=== PATIENT | female | born 1990 ===

== ENCOUNTER 2016-11-06 22:05 | Inpatient (IN) ==
--- NOTE | 2016-11-06 22:50 | Emergency Department Note ---
Leyla Yanes Brittany, am scribing for, and in the presence of, Lucio Johnson MD 22: 47. Alex Yanes Andrew, MD, personally performed the services described in this documentation, ascribed by Yolanda Mayer in my presence, and it is both accurate and complete 250 . Arrival - Arrival Chief Complaint: Abdominal / Flank Pain ED Nursing Triage Note: Pt arrives via ems for further eval of acute appendicitis and gallstones. Pt was seen and treated at [facility] and sent after CT findings. Pt states that pain started today around 1200. Pain was initially in upper right quad. Denies pain at time of triage. Mode of Arrival: Stretcher Limitations: No Limitations Source: Patient Time Seen by Provider: 11/06/16 22:32 - History of Present Illness HPI Narrative: This si a 26 y/o [place] female,who presents to the ED by EMS for further evaluation of acute appendicitis. She states at 1200 today she started to experience RUQ pain. She states she was seen originally at [facility] and then sent here for futher evaluation. She reports nausea and vomiting with the abdominal pain but denies a fever. She reports she was given "pain medication" while at [facility] and the pain has now resolved. Pt has no other complaints/pain in the ED at this time. Pt denies a PMHx. Pt has had a tonsilectomy. Pt denies a family medical hx. Pt denies a social Hx. Onset (ago): hour(s) (Started today at noon) Consistency: now resolved Severity: moderate Date of Last Menstrual Period: 2 weeks ago Allergies/Adverse Reactions: Allergies Allergy/AdvReac Type Severity Reaction Status Date / Time Amoxicillin Allergy Mild Unknown/Unable Verified 09/02/14 07:35 to obtain Home Medications: Home Medications Medication Instructions Recorded Confirmed Type No Known Home Medications [No 11/06/16 11/06/16 History Known Home Medications] Review of System - Review of System 12 point system: reviewed and no additional remarkable complaints except as stated - Review of System Constitutional: Absent: fever Gastrointestinal: Present: abdominal pain, nausea Medical,Surgical,& Family Hx - Medical History Musculoskeletal: No history of: Amputation Reproductive: History of: Abnormal Pap Smear (2011) No history of: Breast Cancer, Ectopic , Complication, Sexually Transmitted Disorders, Reproductive Problems Other: No history of: Anesthesia Reactions - Surgical History Thoracic Surgeries: Patient denies;: Organ Transplant HEENT Surgeries: Surgical HX of: Tonsilectomy & Adenoidectomy (6 y/o) Reproductive Surgeries: Patient denies;: Section, Dilation and Curettage, Gynecologic Surgery, Hysterectomy, Tubal Ligation - Family History Family History: Reports;: Family Diabetes (dad) Denies;: Family Anesthesia Reaction, Family Cancer, Family Heart Disease, Family Hypertension, Family Psychiatric Problems, Family Stroke - Social History Smoking Status: Never smoker Frequency of Alcohol Use: None Type of Drug Use: None Exam Vital Signs: Vital Signs Temperature 99.0 F 11/06/16 22:05 Pulse Rate 104 H 11/07/16 00:05 Respiratory Rate 20 11/07/16 00:05 Blood Pressure 98/80 11/07/16 00:05 O2 Sat by Pulse Oximetry 96 11/07/16 00:05 - General General appearance: alert, in no apparent distress - Head Head exam: Present: atraumatic, normocephalic, normal inspection - Eye Eye exam: Present: normal appearance, PERRL, EOMI. Absent: nystagmus, miosis, mydriasis - ENT ENT exam: Present: normal exam, normal oropharynx, mucous membranes moist, TM's normal bilaterally, normal external ear exam - Neck Neck exam: Present: normal inspection, full ROM, trachea midline. Absent: tenderness, meningismus, lymphadenopathy, thyromegaly - Chest Chest inspection: Present: normal inspection, symmetric chest wall rise. Absent : tenderness, rash, abscess - Respiratory Respiratory exam: Present: normal lung sounds bilaterally. Absent: rales, respiratory distress, rhonchi, stridor, wheezes - Cardiovascular Cardiovascular exam: Present: regular rate, normal rhythm, normal heart sounds. Absent: murmur, rubs, gallop, clicks, JVD - Abdominal Exam Abdominal exam: Present: soft, normal bowel sounds. Absent: distention, tenderness, guarding, rebound, rigidity - Rectal Exam Rectal exam: Present: deferred - Extremities Exam Extremities exam: Present: normal inspection, full ROM, normal capillary refill. Absent: tenderness, pedal edema, joint swelling, calf tenderness - Back Exam Back exam: Present: normal inspection, full ROM. Absent: tenderness, muscle spasm, rashes - Neurological Exam Neurological exam: Present: alert, oriented X3, CN II-XII intact. Absent: motor sensory deficit - Psychiatric Psychiatric exam: Present: normal affect, normal mood. Absent: depressed, agitated, anxious, flat affect, manic - Skin Skin exam: Present: warm, dry, intact, normal color. Absent: rash, cyanosis, diaphoresis, erythema, pallor, mottled Course Course Narrative: CT viewed by me and report reviewed with 12mm appendix with surrounding stranding consistent with appendicitis. Had Rocephin at the OSH. WBC 13. Discussed with Dr. Armijo and plan to admit for appendectomy. Cefoxitin given per Dr. Armijo's request. Results - Labs CBC & BMP: 11/06/16 22:49 11/06/16 22:49 Lab Results: I have reviewed the patients labs Disposition Clinical Impression: Acute appendicitis Case discussed with: patient Disposition: Still a Patient Condition: Stable
[2016-11-06 23:22] LABS: Basophils % 0.3 % (0.0-0.8); Hematocrit 39.8 VOL% (35.7-47.0); Hemoglobin 13.2 GM/DL (12.0-16.0); Immature Granulocytes % 0.4 %; Immature Granulocytes Absolute 0.06 #; Lymphocytes # 1.5 10*3/uL (1.4-4.0); Lymphocytes % 11.3 % (21.3-54.2); Mean Corpuscular HGB Conc 33.2 GM/DL (32-36); Mean Corpuscular Hemoglobin 28 PG (27-34); Mean Corpuscular Volume 84.7 FL (87-102); Mean Platelet Volume 10.9 FL (9.6-12.0); Monocytes # 0.4 10*3/uL (0.11-0.8); Monocytes % 2.9 % (1.7-12.7); Neutrophils # 11.4 10*3/uL (1.4-7.4); Neutrophils % 85.1 % (38.7-73.9); Platelet Count 334 T/CUMM (130-400); Red Cell Distribution Width 13.2 % (9.3-17.3); White Blood Count 13.4 T/CUMM (4-12)
[2016-11-06 23:35] LABS: INR 1.1; PT Patient Result 11.7 SECS; Partial Thromboplastin Time 25.7 SECS (0-40)
[2016-11-06 23:39] LABS: Albumin 3.4 G/DL (3.4-5.0); Bilirubin,Total 0.4 MG/DL (0.2-1.0); Calcium 9.1 MG/DL (8.5-10.1); Osmolality,Calculated 280.1 MOS/KG (273-304); Potassium 3.8 MMOL/L (3.5-5.1); Total Protein 8.1 G/DL (6.4-8.3)
[2016-11-07 00:01] LABS: Apearance,Urine CLEAR (Clear); Bilirubin,Urine Negative (Negative); Blood, Urine Small mg/dL (Negative); Glucose,Urine (UA) Negative (Negative); Ketones,Urine 80 mg/dL (Negative); Mucus,Urine Occasional /LPF (Occasional); Nitrite,Urine Negative (Negative); Protein,Urine Negative; RBC,Urine 2 /HPF (0-4); Squamous Epithelial Cell,Urine Occasional /HPF (0-10); Urine Color Yellow (Yellow); Urine Specific Gravity > 1.060 (1.001-1.035); Urine Urobilinogen < 2.0 EU/DL (0.2-1.0); WBC,Urine 1 /HPF (0-6)
[2016-11-07] MEDS ORDERED: cefOXitin 1,000 MG in SODIUM CHLORIDE 0.9% 100 ML IV STA (01:29)
[2016-11-07] MEDS ORDERED: ONDANSETRON 4 MG/2 ML VIAL IV PRN (02:38)
[2016-11-07] MEDS ORDERED: ACETAMINOPHEN 325 MG TABLET PO PRN (02:38)
[2016-11-07] MEDS: DEXTROSE 5% NACL 0.45% 1,000 ML IV SCH ×3 (03:59→23:57)
[2016-11-07] MEDS ORDERED: LIDOCAINE 1%/EPI INJ 20 ML VIAL ONE (06:21)
[2016-11-07] MEDS ORDERED: BUPIVACAINE MPF 0.25% /EPI 30 ML VIAL ONE (06:21)
--- NOTE | 2016-11-07 07:17 | General Surg History&Physical ---
Assessment and Plan (1) Abdominal pain Status: Acute Assessment and plan: This patient appears to have appendicitis and symptomatic cholelithiasis or even acute cholecystitis. She feels better after treatment with antibiotics and pain medicine. I recommended laparoscopic appendectomy with diagnostic laparoscopy and laparoscopic cholecystectomy if the gallbladder indeed looks inflamed which I think it well. She has no indications for selective cholangiogram with normal bilirubin and no ductal dilation on her CT scan. We will go ahead and schedule these procedures for today. I have discussed the risks, benefits, and alternatives of the operations with the patient, and the expected outcomes have been reviewed. The patient would like to proceed with surgery. Current Visit: Yes History of Present Illness Chief complaint: Abdominal pain History of present illness: Ms. Cruz is a 26 year old female who presents to the hospital transfer from [facility] for abdominal pain. She was having midepigastric pain as well as right-sided abdominal pain that brought her to the hospital with associated nausea but no vomiting. The patient was evaluated with lab work and CT scan which revealed negative test on urinalysis as well as leukocytosis and some minimal transaminitis. Her CT scan showed appendicitis and also some thickening of the gallbladder wall and acute stone in the neck of the gallbladder. She was transferred [facility] for management. Home Medications Medication Instructions Recorded Confirmed Type No Known Home Medications [No 11/06/16 11/06/16 History Known Home Medications] Allergies Allergy/AdvReac Type Severity Reaction Status Date / Time Amoxicillin Allergy Mild Unknown/Unable Verified 09/02/14 07:35 to obtain Medical,Surgical,& Family Hx - Medical History Cardio: History of: Hypertension (during ) Neurology: No history of: Seizures Musculoskeletal: No history of: Amputation Reproductive: History of: Abnormal Pap Smear (2011) No history of: Breast Cancer, Ectopic , Complication, Sexually Transmitted Disorders, Reproductive Problems Other: No history of: Anesthesia Reactions - Surgical History Thoracic Surgeries: Patient denies;: Organ Transplant HEENT Surgeries: Surgical HX of: Tonsilectomy & Adenoidectomy (6 y/o) Reproductive Surgeries: Patient denies;: Section, Dilation and Curettage, Gynecologic Surgery, Hysterectomy, Tubal Ligation - Family History Family History: Reports;: Family Diabetes (dad, paternal grandmother) Denies;: Family Anesthesia Reaction, Family Cancer, Family Heart Disease, Family Hypertension, Family Psychiatric Problems, Family Stroke - Social History Smoking Status: Never smoker Frequency of Alcohol Use: None Type of Drug Use: None Exam - Constitutional Vitals: Period Temp Pulse Resp BP Sys/Yan Pulse Ox Last 24 Hr 98.2 F-99.0 F 86-105 17-20 98-176/69-91 91-100 General appearance: no acute distress, morbidly obese - Head Head exam: Present: normal inspection, normocephalic - Eye Eye exam: Present: EOMI. Absent: scleral icterus Pupils: Present: CHER - ENT ENT exam: Present: normal exam Mouth exam: Present: normal external inspection, normal voice - Neck Neck exam: Present: normal inspection, trachea midline - Respiratory Respiratory exam: Present: clear to auscultation bilaterally. Absent: accessory muscle use, chest wall tenderness - Cardiovascular Cardiovascular exam: Present: RRR. Absent: systolic murmur, tachycardia - GI/Abdominal GI/Abdominal exam: Present: tenderness (Right upper quadrant and right lower quadrant tenderness is present.), soft. Absent: rebound - Extremities Exam Extremities exam: Present: normal inspection, normal capillary refill - Back Exam Back exam: Present: normal inspection - Neurological Exam Neurological exam: Present: alert, oriented X3 Speech: Present: normal - Skin Skin exam: Present: normal color, warm - Constitutional Constitutional: Present: as per HPI - EENT Nose, mouth and throat: Present: as per HPI - Cardiovascular Cardiovascular: Present: as per HPI - Respiratory Respiratory: Present: as per HPI - Gastrointestinal Gastrointestinal: Present: as per HPI - Genitourinary Genitourinary: Present: as per HPI - Musculoskeletal Musculoskeletal: Present: as per HPI - Neurological Neurological: Present: as per HPI - Endocrine Endocrine: Present: as per HPI Hematologic/Lymphatic: Present: as per HPI Results - Labs CBC & BMP: 11/06/16 22:49 11/06/16 22:49 - Diagnostic Findings Procedure: CT Abdomen and Pelvis: image reviewed by me, report reviewed by me ( Acute appendicitis with no perforation. Large gallstone in the gallbladder with gallbladder wall thickening.)
[2016-11-07] MEDS ORDERED: KETOROLAC 30 MG/1 ML VIAL ONE (09:21)
[2016-11-07] MEDS ORDERED: GLYCOPYRROLATE 0.4 MG/2 ML VIAL ONE (09:21)
[2016-11-07] MEDS ORDERED: NEOSTIGMINE 10 MG/10 ML VIAL ONE (09:21)
[2016-11-07] MEDS ORDERED: PROPOFOL 200 MG/20 ML VIAL IV ONE (09:21)
[2016-11-07] MEDS ORDERED: LIDOCAINE 1% 5 ML VIAL ONE (09:21)
[2016-11-07] MEDS ORDERED: ONDANSETRON 4 MG/2 ML VIAL ONE (09:21)
[2016-11-07] MEDS ORDERED: ROCURONIUM 100 MG/10 ML VIAL IV ONE (09:21)
[2016-11-07] MEDS ORDERED: DEXAMETHASONE 10 MG/1 ML VIAL ONE (09:21)
[2016-11-07] MEDS ORDERED: TISSUE ADHESIVE 1 EACH APPLICATOR TOP ONE (10:42)
--- NOTE | 2016-11-07 11:51 | Operative Note ---
Date of procedure: 11/07/16 Pre-op diagnosis: Acute appendicitis with acute cholecystitis Post-op diagnosis: same Procedure: Preoperative diagnosis 1. Acute appendicitis CT proven 2. Acute cholecystitis with gallbladder stones Postoperative diagnosis Same Procedures performed 1. Diagnostic laparoscopy 2. Laparoscopic appendectomy 3. Laparoscopic cholecystectomy Findings There is acute inflammation in the appendix with no evidence of perforation. Minimal free fluid in the pelvis that was clear appearing. The gallbladder was acutely inflamed. The critical view of safety was obtained prior to placing clips in the cystic duct and cystic artery. There was some bleeding from the gallbladder mesentery controlled with additional clip placement this was well above the portal triad structures. Complications None apparent Specimen 1. Appendix 2. Gallbladder Anesthesia GETA Blood loss 25 mL Indications Acute appendicitis with acute cholecystitis Description of procedure The patient was taken to the operating room and transferred to the operating table in the supine position. Pressure points were padded and SCDs were placed to bilateral lower extremities. A Spangler catheter was placed with clear urine output. The abdomen was prepped with chlorhexidine and draped sterilely. Preoperative antibiotics were administered, and a timeout was performed. The abdomen was entered in a supraumbilical location with a cutdown technique after Veress needle was unable to access the abdominal cavity due to obesity. Incision was made with an 11 blade scalpel and penetrating towel clips were used to grasp the umbilical stalk. The Veress needle was unable to enter the peritoneal cavity even with and the Veress needle was removed and a cutdown was performed on the fascia at the supraumbilical location. The fascia was opened under direct visualization and a Kay trocar was placed 12 mm in size. The laparoscope was inserted. There is no evidence of Veress needle or trocar injury. Diagnostic laparoscopy revealed acute appendicitis with some free fluid in the pelvis with no evidence of perforation or gangrene and no associated abscess. This was simple fluid in the pelvis. The gallbladder appeared acutely inflamed as well. Under direct visualization, and after local anesthetic was administered, a suprapubic 5 mm trocar was placed and 3 right subcostal 5 mm trochars were placed. Patient was placed in Trendelenburg position and left side rolled down position and the appendix was grasped in its mid body. A window in the appendiceal mesentery was created with a [place] dissector and a stapler was used to transect the base of the appendix where the bowel appeared healthy and viable. The appendiceal mesentery was then divided using vascular staplers and there was no bleeding from the staple line. The appendix was placed in an Endo Catch retrieval bag which was tagged with a hemostat. The patient was then placed in reverse Trendelenburg position and the left side was maintained and rolled down position. The gallbladder was grasped with the right subcostal trochars at the fundus and the infundibulum and retracted laterally and towards the patient's feet. The cystic plate peritoneum was dissected until the critical view of safety was obtained. There was a large stone lodged in the neck of the gallbladder and findings of acute cholecystitis of gallbladder wall thickening and inflammatory changes. The cystic duct and cystic artery were clipped twice centrally and once laterally and divided laparoscopically with scissors between clips. The gallbladder was removed from the gallbladder fossa using hook electrocautery. There was an additional cystic artery branch posteriorly that was encountered upon the gallbladder mesentery above the portal triad near the liver bed and this caused some significant arterial bleeding that was controlled with additional clip placement. The gallbladder was removed from the remainder of the gallbladder fossa with electrocautery and placed in an additional Endo Catch bag. The abdomen was locally suction irrigated the right upper and lower quadrants until the effluent was clear. The camera was then moved to a different trocar and a 0 Vicryl stitch was placed using a laparoscopic suture passer. The CO2 was released from the abdomen and the camera was removed as well as the trochars. There was still residual fascial defect at the supraumbilical trocar site after the laparoscopic suture passer placement so an additional [id number] 0 Vicryl stitch was used to close the fascia with no residual fascial defect. The skin incisions were irrigated and closed with 4-0 Monocryl and skin glue was applied. The patient was awakened from anesthesia and transferred to recovery. Postoperative plan Diet as tolerated Repeat labs in a.m. Anesthesia: PHILLIPA, local Surgeon / Physician: Regan Armijo Estimated blood loss: minimal Specimens: other (1. appendix 2. gallbladder) Condition: stable Disposition: PACU Results - Labs CBC & BMP: 11/06/16 22:49 11/06/16 22:49 Discharge Plan - Discharge Medications No Action No Known Home Medications [No Known Home Medications] - Follow Up or Referral - Forms/Instructions
[2016-11-07] MEDS: PANTOPRAZOLE 40 MG TABLET PO SCH (13:33)
[2016-11-07] MEDS: HYDROmorphone 2 MG/1 ML VIAL IV PRN ×2 (13:47→22:51)
[2016-11-07] MEDS ORDERED: SEVOFLURANE 1 UNIT/15 MINUTE INH ONE (14:25)
[2016-11-07] MEDS ORDERED: HYDROmorphone 2 MG/1 ML VIAL ONE (14:25)
[2016-11-07] MEDS ORDERED: MIDAZOLAM 2 MG/2 ML VIAL ONE (14:25)
[2016-11-07] MEDS ORDERED: LACTATED RINGERS 2,000 ML IV ONE (14:25)
[2016-11-07] MEDS ORDERED: fentaNYL 100 MCG/2 ML VIAL ONE (14:25)
--- NOTE | 2016-11-07 15:34 | Anesthesia Post-Op ---
Anesthesia Post OP - Post Ansesthetic Evaluation Patient seen in post op: Yes Resp: within normal limits CV: within normal limits Mental: within normal limits Temp: within normal limits [id number]: within normal limits Nausea and Vomiting: within normal limits Pain: within normal limits
[2016-11-08 05:09] LABS: Basophils % 0.1 % (0.0-0.8); Eosinophils % 0.1 % (0.00-10.9); Hematocrit 32.2 VOL% (35.7-47.0); Hemoglobin 10.4 GM/DL (12.0-16.0); Immature Granulocytes % 0.6 %; Immature Granulocytes Absolute 0.07 #; Lymphocytes # 1.9 10*3/uL (1.4-4.0); Lymphocytes % 15.8 % (21.3-54.2); Mean Corpuscular HGB Conc 32.3 GM/DL (32-36); Mean Corpuscular Hemoglobin 28 PG (27-34); Mean Corpuscular Volume 86.8 FL (87-102); Mean Platelet Volume 10.9 FL (9.6-12.0); Monocytes # 0.8 10*3/uL (0.11-0.8); Monocytes % 6.2 % (1.7-12.7); Neutrophils # 9.4 10*3/uL (1.4-7.4); Neutrophils % 77.2 % (38.7-73.9); Platelet Count 292 T/CUMM (130-400); Red Blood Count 3.71 MC/CUMM (3.8-5.5); Red Cell Distribution Width 13.3 % (9.3-17.3); White Blood Count 12.1 T/CUMM (4-12)
[2016-11-08 05:49] LABS: Albumin 2.6 G/DL (3.4-5.0); Bilirubin,Total 0.5 MG/DL (0.2-1.0); Calcium 8.1 MG/DL (8.5-10.1); Osmolality,Calculated 280.1 MOS/KG (273-304); Potassium 4.1 MMOL/L (3.5-5.1); Total Protein 6.2 G/DL (6.4-8.3)
[2016-11-08] MEDS: DEXTROSE 5% NACL 0.45% 1,000 ML IV SCH ×2 (08:52→15:07)
--- NOTE | 2016-11-08 09:53 | Discharge Summary ---
Hospital Course - Hospital Course Hospital Course: Patient is a 26-year-old female transferred from [facility] with abdominal pain. She underwent diagnostic laparoscopy at which time laparoscopic appendectomy and cholecystectomy were performed. Postoperatively, there were no complications to report. Her pain was well managed, and she was tolerating oral intake, voiding, passing flatus without difficulty. Slight drop in her hemoglobin and hematocrit which were stable prior to discharge. She was discharged home in good condition. She will follow with Dr. Armijo in approximately 2 weeks. Diagnosis - Discharge Diagnosis (1) Acute calculous cholecystitis Status: Acute (2) Acute appendicitis Status: Acute Specialty Discharge - Follow Up or Referrals Follow up with: Regan Armijo MD [Physician] - 2 Weeks Discharge Plan - Discharge Data Disposition: Disch To Home/Self Care Condition at Discharge: Stable Discharge Diet: advance to your usual diet Activity: no lifting (> 10 lb; avoid excessive perspiration. ) Hygiene: may shower (starting Tuesday11/09/2016. Do not soak or submerge wound. Pat incisions dry. ) Driving: other (No driving while taking narcotics.) Contact your physician if you experience:: fever over 101, Redness or swelling, Nausea/Vomiting, Bleeding, pain uncontrolled by pain medications Wound / Dressing Care Instructions: Keep surgical incisions clean and dry. Avoid excessive perspiration. - Discharge Medications New HYDROcodone/ACETAMIN 7.5-325 [[place] 7.5-325] 1 tablet PO Q4H PRN #30 tablet PRN Reason: Pain Moderate To Severe (4-10) - Follow Up or Referral Follow Up: Regan Armijo MD [Physician] - 2 Weeks - Forms/Instructions Instructions: Hydrocodone/Acetaminophen (By mouth), Laparoscopic Cholecystectomy (DC), Laparoscopic Appendectomy (DC) Exam - Constitutional Vitals: Period Temp Pulse Resp BP Sys/Yan Pulse Ox Last 24 Hr 97.1 F-98.6 F 58-96 16-18 89-162/43-80 92-97 General appearance: no acute distress, morbidly obese - Eye Eye exam: Absent: conjunctival injection, scleral icterus - Respiratory Respiratory exam: Present: clear to auscultation bilaterally - Cardiovascular Cardiovascular exam: Present: regular rate and rhythm - GI/Abdominal GI/Abdominal exam: Present: normal bowel sounds, tenderness (appropriate p/o tenderness), soft, other (Surgical incisions c/d/i). Absent: distended, guarding - Extremities Exam Extremities exam: Absent: calf tenderness, edema - Neurological Exam Neurological exam: Present: alert, oriented X3 - Psychiatric Psychiatric exam: Present: normal affect, normal mood - Skin Skin exam: Present: normal color, warm Discharge Results Procedures and tests throughout hospitalization: Pending Orders 11/08/16 12:00 Hemoglobin and Hematocrit Timed Procedures 1. Diagnostic laparoscopy #2 laparoscopic appendectomy #3 laparoscopic cholecystectomy Pathology pending #1 appendix #2 gallbladder Labs on day of discharge: Labs from last 24 hours 11/08/16 11/08/16 04:37 04:37 WBC 12.1 H RBC 3.71 L D Hgb 10.4 L D Hct 32.2 L MCV 86.8 L MCH 28 MCHC 32.3 RDW 13.3 Plt Count 292 MPV 10.9 Neut % (Auto) 77.2 H Lymph % (Auto) 15.8 L Patrick % (Auto) 6.2 Eos % (Auto) 0.1 Baso % (Auto) 0.1 Neut # (Auto) 9.4 H Lymph # (Auto) 1.9 Patrick # (Auto) 0.8 Eos # (Auto) 0.0 Baso # (Auto) 0.0 Immature Gran % 0.6 Nucleated RBC % 0.0 Immature Gran # 0.07 Nucleated RBCs # 0.00 Sodium 142 Potassium 4.1 Chloride 106 Carbon Dioxide 28 Anion Gap 12.1 BUN 5 L Creatinine 0.60 GFR Calculation 143 BUN/Creatinine Ratio 8.00 Glucose 120 H Calculated Osmolality 280.1 Calcium 8.1 L Total Bilirubin 0.50 AST 40 H ALT 57 H Alkaline Phosphatase 65 Total Protein 6.2 L Albumin 2.6 L Globulin 3.6 H Albumin/Globulin Ratio 0.7 L - Additional Comments Transfer chart reviewed at time of admission. DS: Provider Date of admission: 11/07/16 02:37 Primary care physician: Rhonda Lema MD Attending physician on admission: Regan Armijo MD Discharging clinician: Shweta Villatoro PA-C
[2016-11-08] MEDS: PANTOPRAZOLE 40 MG TABLET PO SCH (10:02)
--- NOTE | 2016-11-08 11:17 | Event Note ---
General Surgery Progress Note Chief complaint This patient is a 26-year-old woman admitted with cholecystitis and appendicitis treated with laparoscopic appendectomy and laparoscopic cholecystectomy on 11/07/2016 Interval history No events overnight. Hemoglobin is down to 10.5 which is about 3 g lower than preop. Her vital signs were normal overnight but she did have a slightly low blood pressure this morning in the 90s systolic. She is tolerating her diet and her pain is well controlled. No orthostatic symptoms. Lab work shows stable LFTs and decreasing white blood cell count Physical exam The patient is afebrile with normal vital signs with the exception of an isolated low blood pressure this morning Abdomen is benign with expected postoperative tenderness and clean incisions. There was a little bit of blood on the umbilical dressing but there is no active bleeding and the incision looked clean with a small hematoma present. Labs Reviewed, as above Imaging None new Assessment and plan Repeat hemoglobin at noon Continue current treatment plan. Possible discharge home later today if hemoglobin is stable and patient does well this morning.
[2016-11-08 11:20] VITALS: BP 108/64
[2016-11-08 12:24] LABS: Hematocrit 34.8 VOL% (35.7-47.0)
--- NOTE | 2016-11-08 12:30 | Pathology Report from [facility] ---
[facility] [place] # : [id number] PATIENT NAME : Maia Cruz ORDERING DR : Regan Armijo MD CLINICAL HX: Appendicitis, cholecystitis POST-OP DX: Same SPECIMEN INFO: #1 Appendix #2 Gallbladder GROSS DESCRIPTION: Received in formalin in two parts labeled:#1 MAIA CRUZ & (A) is an appendix and attached appendiceal fat measuring 7.2 cm x up to 1.3 cm. The serosa is erythematous with a few hemorrhagic appearing adhesions present. The lumen is edematous containing hemorrhagic material with no fecaliths or perforations identified. Vascular Ultrasound Technician sections are submitted in cassette #1.#2 MAIA CRUZ & (B) is an intact gallbladder measuring approx. 14 x 4.2 cm. The serosa is smooth pink and erythematous. The gallbladder wall has a thickness of 0.3 cm. The mucosa is dull pink martins and diffusely trabeculated. The lumen contains thick tarry brown black material containing faceted stones measuring from 0.4 cm up to 1.5 cm. Within the area of the cystic duct a 2 x 1.7 cm faceted martins yellow stone. Vascular Ultrasound Technician sections are submitted in one cassette. DIAGNOSIS FOR MAIA CRUZ: #1 APPENDIX: Acute suppurative appendicitis.# 2 GALLBLADDER: Chronic cholecystitis. Cholelithiasis. No evidence of malignancy. COLLECTED DATE: 11/08/2016 [facility] [place] DATE: 11/08/2016 ELECTRONICALLY SIGNED BY: Khushbu Donald III, M.D. 11/08/2016 - 9:40:52 MTDD
== END 2016-11-08 14:10 | disposition home or self-care (01) | DRG 418 ==
LOC: EDBD → EDUNIT# → N.ED 22:05 → N.EDINP 11-07 02:37 → N.3E 11-07 03:06
PROVIDERS: ADMIT Surgery; ATTEND Surgery
PROC: LAPCHOL (2016-11-07 09:21)